=== PATIENT | female | born 1990 | race Caucasian/White ===

== ENCOUNTER 2016-11-10 19:19 | Emergency (ER) | payer MEDICAID, OTHER ==
[2016-11-10 19:26] VITALS: TEMP 98.1; O2SAT 96
[2016-11-10] MEDS ORDERED: CEPHALEXIN 500MG PREPACK#4 BTL TAKEHOME ONE (20:09)
--- NOTE | 2016-11-10 20:09 | EDPHY ---
H & P Time Seen by Provider: 11/10/16 19:38 HPI/ROS: CHIEF COMPLAINT: Bilateral heel pain HISTORY OF PRESENT ILLNESS: This is a 26-year-old female presenting to the emergency department complaining of bilateral heel pain with blisters. Patient states her boyfriend have been hiking in the [facility] [place] for 22 days now , over the past several days she has noticed blisters on her heels along with redness and tenderness. Patient states she has pop the blisters on her heels but has noticed an increase in redness and swelling. Denies any other complaints REVIEW OF SYSTEMS: Constitutional: No fever, no chills. No fatigue. No appetite changes ENT: No sore throat. Cardiovascular: No chest pain, no palpitations. Respiratory: No cough, no shortness of breath. Gastrointestinal: No abdominal pain, no vomiting. Musculoskeletal: No back pain. Bilateral heel pain Skin: No rashes. Bilateral heel redness with blisters Neurological: No headache. Past Medical/Surgical History: And patient denies any past medical history. Tetanus is up-to-date Smoking Status: Never smoked Physical Exam: General Appearance: Alert and no distress. Eyes: Pupils equal and round no injection. Neurological: No focal deficits. ambulatory without gait disturbance Respiratory: Chest is nontender, nonlabored respiratory effort Musculoskeletal: bilat heel erythema. The small 1cm x 1cm Fluid filled blister on right heel, the no blister noted on left heel Extremities: full range of motion Skin: No rashes or lesions. Constitutional: Initial Vital Signs Temperature (C) 36.7 C 11/10/16 19:23 Heart Rate 84 11/10/16 19:23 Respiratory Rate 18 11/10/16 19:23 Blood Pressure 148/83 H 11/10/16 19:23 O2 Sat (%) 96 11/10/16 19:23 O2 Delivery Mode Room Air Allergies/Adverse Reactions: No Known Allergies Allergy (Unverified 11/10/16 19:25) Home Medications: Medication Instructions Recorded Cephalexin [Keflex (*)] 500 mg PO TID #21 cap 11/10/16 Medical Decision Making ED Course/Re-evaluation: Discussed plan of care: Initial dose of Keflex given here, dressing changes he can use [id number]-[id number] triple antibiotic. Discharge home--> stable Differential Diagnosis: Other differential diagnosis considered but not limited to necrotizing fasciitis , lymphangitis and calcaneus injury Departure - Departure Disposition: Home, Routine, Self-Care Clinical Impression: Soft tissue infection of foot Condition: Good Instructions: Cephalexin (By mouth), Cellulitis (ED), Warm Compress or Soak (ED ) Additional Instructions: Discussed discharge instructions 1. I would recommend not wearing any socks or shoes that are going to rub against the blisters on heels 2. Do not pop or pick at the blisters 3. You do have some small erythema surrounding area which could indicate a small soft tissue infection. Started on Keflex 4. The keep wounds clean and dry. I would recommend no vargas water or river water exposure as this can increase chances for a worsening infection Referrals: NONE *PRIMARY CARE P,. [Primary Care Provider] - As per Instructions [facility],. [Clinic] - As per Instructions Prescriptions: Cephalexin [Keflex (*)] 500 mg PO TID #21 cap
[2016-11-10 20:58] VITALS: BP 123/76; PULSE 78; RESP 16
== END 2016-11-10 20:40 | disposition home or self-care (01) ==
DX: L08.9 Local infection of the skin and subcutaneous tissue, unspecified (principal)